=== PATIENT | male | born 1950 | race African-American/Black ===

== ENCOUNTER 2018-04-24 21:06 | Emergency (ER) | payer OTHER ==
[~2018-04-24] VITALS: Ht 182.9 cm; Wt 102.0 kg
[2018-04-24] MEDS ORDERED: SODIUM CHLORIDE 0.9% 1,000 ML IV ONE (23:43)
[2018-04-24 23:59] LABS: BASOPHILS % 0.2 % (0.0-2.0); HEMATOCRIT. 38.9 % (42.0-52.0); HEMOGLOBIN. 12.8 g/dL (14.0-18.0); LYMPHOCYTES % 7.6 % (20.0-50.0); MEAN CORPUSCULAR HEMOGLOBIN 31.3 pg (28.0-32.0); MEAN CORPUSCULAR VOLUME 95.1 fL (80.0-94.0); MEAN PLATELET VOLUME 8.3 fl (7.4-10.4); MONOCYTES % 3.9 % (2.0-8.0); NEUTROPHILS % 86.3 % (40.0-76.0); PLATELET 201 x1000/uL (130-400); RED CELL DISTRIBUTION WIDTH 15.2 % (11.6-14.6)
[2018-04-25 00:07] LABS: CHLORIDE 103 mEq/L (98-107)
[2018-04-25 01:17] VITALS: BP 183/102
[2018-04-25] MEDS ORDERED: FURO-151 MT (13:24)
[2018-04-25] MEDS ORDERED: COR25 PO (13:24)
[2018-04-25] MEDS ORDERED: GLYB5TAB7 PO (13:24)
[2018-04-25] MEDS ORDERED: LISI40TA4 PO (13:24)
[2018-04-25] MEDS ORDERED: ISOS10TA53 MT (13:24)
[2018-04-25] MEDS ORDERED: SIMV20TA6 MT (13:24)
[2018-04-25] MEDS ORDERED: SPIR25TA6 MT (13:24)
[2018-04-25] MEDS ORDERED: HYDR-4134 MT (13:24)
[2018-04-25] MEDS ORDERED: METF-416 MT (13:24)
[2018-04-25] MEDS ORDERED: ASPI-1159 MT (13:24)
== END 2018-04-25 01:29 | disposition home or self-care (01) ==
LOC: ER 21:06
DX: R55 Syncope and collapse (principal); I11.0 Hypertensive heart disease with heart failure; I50.9 Heart failure, unspecified; E11.9 Type 2 diabetes mellitus without complications; R53.1 Weakness; R42 Dizziness and giddiness; Z98.890 Other specified postprocedural states
CPT/HCPCS: 36415; 71045; 80053; 82962; 84484; 85025; 93005; 99284; J7030

== ENCOUNTER 2018-04-25 01:48 | Inpatient (IN) | payer OTHER ==
[~2018-04-25] VITALS: Ht 182.9 cm; Wt 102.1 kg
[2018-04-25] VITALS (7 sets, daily range): BP systolic 140–162; BP diastolic 66–91
[2018-04-25] MEDS ORDERED: ONDANSETRON HCL 4MG/2ML INJ IV STA (02:03)
[2018-04-25] MEDS ORDERED: SODIUM CHLORIDE 0.9% 1,000 ML IV ONE (02:03)
[2018-04-25 02:20] LABS: BASOPHILS % 0.6 % (0.0-2.0); EOSINOPHILS % 1.3 % (0.0-5.0); HEMATOCRIT. 38.8 % (42.0-52.0); HEMOGLOBIN. 12.5 g/dL (14.0-18.0); LYMPHOCYTES % 10.5 % (20.0-50.0); MEAN CORPUSCULAR HEMOGLOBIN 30.9 pg (28.0-32.0); MEAN PLATELET VOLUME 8.6 fl (7.4-10.4); MONOCYTES % 3.6 % (2.0-8.0); PLATELET 210 x1000/uL (130-400); RED BLOOD CELL COUNT 4.05 mill/uL (4.7-6.1); RED CELL DISTRIBUTION WIDTH 15.5 % (11.6-14.6)
[2018-04-25 02:26] LABS: CHLORIDE 107 mEq/L (98-107)
[2018-04-25] MEDS ORDERED: DEXTROSE 50% WATER 50ML SYRINGE IV PRN (12:45)
[2018-04-25] MEDS ORDERED: HYDRALAZINE 20MG/ML VIAL IV PRN (12:45)
[2018-04-25] MEDS ORDERED: DIPHENHYDRAMINE 50MG/ML VIAL IV PRN (12:45)
[2018-04-25] MEDS ORDERED: MAGNESIUM/ALUMINUM HYDROXIDE/SIMETHICONE 30ML UDC PO PRN (12:45)
[2018-04-25] MEDS: BLOOD SUGAR DIAGNOSTIC STRIP TEST SCH ×3 (13:16→20:59)
[2018-04-25] MEDS: SODIUM CHLORIDE 0.9% INJ 3ML FLUSH IVF SCH ×2 (13:16→21:19)
[2018-04-25] MEDS ORDERED: LISI40TA4 PO (13:24)
[2018-04-25] MEDS ORDERED: HYDR-4134 MT (13:24)
[2018-04-25] MEDS ORDERED: ASPI-1159 MT (13:24)
[2018-04-25] MEDS ORDERED: COR25 PO (13:24)
[2018-04-25] MEDS ORDERED: SPIR25TA6 MT (13:24)
[2018-04-25] MEDS ORDERED: METF-416 MT (13:24)
[2018-04-25] MEDS ORDERED: FURO-151 MT (13:24)
[2018-04-25] MEDS ORDERED: SIMV20TA6 MT (13:24)
[2018-04-25] MEDS ORDERED: ISOS10TA53 MT (13:24)
[2018-04-25] MEDS ORDERED: GLYB5TAB7 PO (13:24)
[2018-04-25] MEDS: INSULIN LISPRO 100 UNITS/ML SUBCUT SCH ×3 (13:34→21:18)
[2018-04-25] MEDS: LEVOFLOXACIN 500MG PREMIX 100 ML IV SCH (15:47)
[2018-04-25] MEDS ORDERED: MEDICATION NOT ON FORMULARY EA (Hydralazine Hcl 1 TAB) MT SCH (17:00)
[2018-04-25] MEDS: HYDRALAZINE HCL 25MG TABLET PO SCH (17:24)
[2018-04-25] MEDS: LISINOPRIL 40MG TABLET PO SCH (17:25)
[2018-04-25] MEDS: ACETAMINOPHEN 325MG TABLET PO PRN (20:58)
[2018-04-25] MEDS: ENOXAPARIN 30MG/0.3ML SYR SUBCUT SCH (20:58)
[2018-04-25] MEDS: CARVEDILOL 12.5MG TABLET PO SCH (20:59)
[2018-04-25] MEDS ORDERED: MEDICATION NOT ON FORMULARY EA (Simvastatin 1 TAB) MT SCH (21:00)
[2018-04-25] MEDS ORDERED: ATORVASTATIN CALCIUM 10MG TABLET PO SCH (21:00)
[2018-04-25] MEDS ORDERED: HYDROCODONE/ACETAMINOPHEN 10/325MG TABLET PO PRN (21:15)
[2018-04-26] VITALS (11 sets, daily range): BP systolic 144–180; BP diastolic 69–103
[2018-04-26] MEDS: SODIUM CHLORIDE 0.9% INJ 3ML FLUSH IVF SCH ×2 (06:00→13:18)
[2018-04-26] MEDS: BLOOD SUGAR DIAGNOSTIC STRIP TEST SCH ×3 (07:26→17:34)
[2018-04-26] MEDS: INSULIN LISPRO 100 UNITS/ML SUBCUT SCH ×2 (08:00→13:31)
[2018-04-26] MEDS: CARVEDILOL 12.5MG TABLET PO SCH (08:11)
[2018-04-26] MEDS: HYDRALAZINE HCL 25MG TABLET PO SCH ×2 (08:12→16:46)
[2018-04-26] MEDS: LISINOPRIL 40MG TABLET PO SCH (08:12)
[2018-04-26] MEDS: ACETAMINOPHEN 325MG TABLET PO PRN (08:23)
[2018-04-26] MEDS: ENOXAPARIN 30MG/0.3ML SYR SUBCUT SCH (08:27)
[2018-04-26] MEDS ORDERED: ISOSORBIDE MONONITRATE 20MG TABLET PO SCH (09:00)
[2018-04-26] MEDS ORDERED: FUROSEMIDE 40MG TABLET PO SCH (09:00)
[2018-04-26] MEDS ORDERED: MEDICATION NOT ON FORMULARY EA (Furosemide (Lasix) 1 TAB) MT SCH (09:00)
[2018-04-26] MEDS ORDERED: MEDICATION NOT ON FORMULARY EA (Spironolactone 1 TAB) MT SCH (09:00)
[2018-04-26] MEDS ORDERED: MEDICATION NOT ON FORMULARY EA (Aspirin (Aspirin Low Dose) 1 TAB) MT SCH (09:00)
[2018-04-26] MEDS ORDERED: ASPIRIN 81MG TABLET PO SCH (09:00)
[2018-04-26] MEDS ORDERED: MEDICATION NOT ON FORMULARY EA (Isosorbide Mononitrate 1 TAB) MT SCH (09:00)
[2018-04-26] MEDS ORDERED: SPIRONOLACTONE 25MG TABLET PO SCH (09:00)
[2018-04-26] MEDS: LEVOFLOXACIN 500MG PREMIX 100 ML IV SCH (15:27)
== END 2018-04-26 18:30 | disposition short-term general hospital (02) | DRG 312 ==
LOC: ER 01:48 → 5EST 02:40 → EDBEDREQSVC 02:43 → EDBEDREQTM 02:43 → EDBEDREQ 02:43 → ENRESERV 09:57
PROVIDERS: ADMIT Internal Medicine; ATTEND Internal Medicine
DX: R55 Syncope and collapse (principal); G93.40 Encephalopathy, unspecified; I42.9 Cardiomyopathy, unspecified; E11.9 Type 2 diabetes mellitus without complications; I11.0 Hypertensive heart disease with heart failure; R00.1 Bradycardia, unspecified; R07.89 Other chest pain; I44.30 Unspecified atrioventricular block; I44.7 Left bundle-branch block, unspecified; I50.9 Heart failure, unspecified; Z83.3 Family history of diabetes mellitus; Z79.84 Long term (current) use of oral hypoglycemic drugs; Z79.82 Long term (current) use of aspirin; Z79.899 Other long term (current) drug therapy
CPT/HCPCS: 36415; 71045; 82962; 84484; 93005; 93306; 96365; 96375; 99285; J0360; J1650; J1815; J1956; J2405; J7030; J7040

== ENCOUNTER 2022-06-03 15:39 | Emergency (ER) | payer OTHER ==
[~2022-06-03] VITALS: Ht 177.8 cm; Wt 110.0 kg
[~2022-06-03 15:39] MED LIST: ASPI-1497 MT; FURO-151 MT; HYDR-4134 MT; ISOS10TA8 MT; LISI40TA13 PO; SIMV-43 MT; SPIR25TA6 MT
[2022-06-03 16:21] LABS: BASOPHILS % 0.6 % (0.0-2.0); EOSINOPHILS % 5.5 % (0.0-5.0); HEMATOCRIT. 37.7 % (42.0-52.0); HEMOGLOBIN. 12.5 g/dL (14.0-18.0); LYMPHOCYTES % 12.4 % (20.0-50.0); MEAN CORPUSCULAR HEMOGLOBIN 31.5 pg (28.0-32.0); MEAN CORPUSCULAR VOLUME 94.7 fL (80.0-94.0); MEAN PLATELET VOLUME 8.7 fl (7.4-10.4); MONOCYTES % 5.1 % (2.0-8.0); NEUTROPHILS % 76.4 % (40.0-76.0); PLATELET 219 x1000/uL (130-400); RED BLOOD CELL COUNT 3.98 mill/uL (4.7-6.1); RED CELL DISTRIBUTION WIDTH 17.5 % (11.6-14.6)
[2022-06-03 16:30] LABS: CHLORIDE 108 mEq/L (98-107)
[2022-06-03 16:41] LABS: ETHANOL BLOOD < 10 mg/dL
[2022-06-03] MEDS ORDERED: FUROSEMIDE 40MG/4ML VIAL IVP NR (17:00)
[2022-06-03] MEDS ORDERED: ASPIRIN 325MG EC TABLET PO NR (17:00)
[2022-06-03 18:24] LABS: *AMPHETAMINES SCREEN URINE NEGATIVE (NEGATIVE); *BARBITURATES SCREEN URINE NEGATIVE (NEGATIVE); *BENZODIAZEPINES SCREEN URINE NEGATIVE (NEGATIVE); *COCAINE SCREEN URINE NEGATIVE (NEGATIVE); CANNABINOID URINE SCREEN NEGATIVE (NEGATIVE); METHADONE URINE SCREEN NEGATIVE (NEGATIVE); OPIATES URINE SCREEN NEGATIVE (NEGATIVE); PHENCYCLIDINE URINE SCREEN NEGATIVE (NEGATIVE)
[2022-06-03 21:00] VITALS: BP 148/77
== END 2022-06-03 22:08 | disposition short-term general hospital (02) ==
LOC: ER 15:39
DX: I50.9 Heart failure, unspecified (principal); R55 Syncope and collapse; R77.8 Other specified abnormalities of plasma proteins; I11.0 Hypertensive heart disease with heart failure; E11.9 Type 2 diabetes mellitus without complications; Z79.899 Other long term (current) drug therapy; Z20.822 Contact with and (suspected) exposure to COVID-19
CPT/HCPCS: 36415; 71045; 80053; 80305; 80320; 83880; 84484; 85025; 87426; 93005; 96374; 99285; C9803; J1940; G0480